=== PATIENT | male | born 1945 | race Hispanic/Latino ===

== ENCOUNTER 2016-12-03 10:30 | Outpatient (CLI) | payer MEDICARE ==
--- NOTE | 2016-12-03 16:03 | Nuclear Medicine Report ---
Whole-body bone scan: Lung cancer with back pain Following injection of radionuclide three-hour whole body bone images are obtained. There is a relatively good bone to background ratio. Activity is identified in the right kidney and bladder. The left kidney apparently has been removed. There is a rim of increased activity overlying the right SI joint region and appears to project as a posterior collection on the oblique views. An os CT scan of 2014 a small amount of inflammation in the soft tissues is identified in this region. A small focus of activity is also identified in the left L1 pedicle. The remainder of the scan is unremarkable. Impressions: No clear explanation for back pain. The single area pedicle pain may be significant but most likely degenerative. The ring of activity near the right SI joint is of questionable significance and may relate to soft tissue.
== END 2016-12-03 10:31 | disposition home or self-care (01) ==
LOC: NM 10:30
PROVIDERS: ATTEND Internal Medicine Hematology & Oncology
DX: C34.90 Malignant neoplasm of unspecified part of unspecified bronchus or lung (principal); Z90.5 Acquired absence of kidney
CPT/HCPCS: 78306; A9503